=== PATIENT | male | born 1960 | race Hispanic/Latino ===

== ENCOUNTER 2018-01-15 22:44 | Emergency (ER) | payer MEDICAID ==
[2018-01-16] MEDS ORDERED: LIDOCAINE 5% TOPICAL PATCH TP ONE (02:20)
== END 2018-01-16 02:31 | disposition home or self-care (01) ==
LOC: EDH 22:44
DX: S29.011A Strain of muscle and tendon of front wall of thorax, initial encounter (principal); N62 Hypertrophy of breast; K70.30 Alcoholic cirrhosis of liver without ascites; E11.9 Type 2 diabetes mellitus without complications; I10 Essential (primary) hypertension; Z98.890 Other specified postprocedural states; Z79.4 Long term (current) use of insulin; X58.XXXA Exposure to other specified factors, initial encounter; Y93.89 Activity, other specified; Y92.89 Other specified places as the place of occurrence of the external cause; Y99.8 Other external cause status
CPT/HCPCS: 71046; 71100; 87804; 93005

== ENCOUNTER 2018-08-23 05:30 | Day surgery (SDC) | payer MEDICAID ==
[~2018-08-23] VITALS: Ht 182.9 cm; Wt 112.9 kg
[~2018-08-23 05:30] MED LIST: ASPI-555 PO; ATOR20TA PO; CITA-107 PO; CLOP75TA14 PO; DIPH25TA51 PO; FERS325 PO; FOLI1TAB15 PO; FURO20TA4 PO; LACT10SO9 PO; METF-444 PO; MIDO5TAB PO; PANT40TA25 PO; RIFA550T PO; [UNRECOGNIZED DRUG - CODE] TP
[2018-08-23] MEDS ORDERED: SODIUM CHLORIDE 0.9% 1000ML 1,000 ML IV ONE (05:52)
[2018-08-23 07:43] VITALS: BP 135/62
[2018-08-23] MEDS ORDERED: PROPOFOL 10 MG/ML 20ML VIAL IV ONE (09:20)
[2018-08-23] MEDS ORDERED: MIDAZOLAM HCL 1 MG/ML 2ML VIAL ONE (09:20)
[2018-08-23 09:29] VITALS: BP 118/68
[2018-08-23 09:34] VITALS: BP 109/60
[2018-08-23 09:42] VITALS: BP 123/68
== END 2018-08-23 10:10 | disposition home or self-care (01) ==
LOC: DAH 05:30
PROVIDERS: ATTEND Internal Medicine Gastroenterology
DX: K29.50 Unspecified chronic gastritis without bleeding (principal); K31.7 Polyp of stomach and duodenum; D62 Acute posthemorrhagic anemia; I85.00 Esophageal varices without bleeding; K21.9 Gastro-esophageal reflux disease without esophagitis; E11.9 Type 2 diabetes mellitus without complications; E78.5 Hyperlipidemia, unspecified; F32.9 Major depressive disorder, single episode, unspecified; K70.31 Alcoholic cirrhosis of liver with ascites; Z85.05 Personal history of malignant neoplasm of liver; Z68.34 Body mass index [BMI] 34.0-34.9, adult; Z79.899 Other long term (current) drug therapy; Z79.84 Long term (current) use of oral hypoglycemic drugs; Z95.5 Presence of coronary angioplasty implant and graft; Z86.010 Personal history of colon polyps; K31.811 Angiodysplasia of stomach and duodenum with bleeding; E11.22 Type 2 diabetes mellitus with diabetic chronic kidney disease; N18.9 Chronic kidney disease, unspecified
CPT/HCPCS: 43239; 82948 ×2; 88305; 88312; 93005; A4606; J2250; J2704; J7030